=== PATIENT | female | born 1980 | race Two or more races ===

== ENCOUNTER 2019-11-23 11:06 | Emergency (ER) | payer SELFPAY ==
[~2019-11-23] VITALS: Ht 152.4 cm; Wt 77.1 kg
--- NOTE | 2019-11-23 11:30 | NUR ---
ED Nurse Note: Pt walked into ED for cough, sore throat, bodyaches and chills, loss of taste x2 days. Pt is alert and orientedx4, ambulatory. Was tested for COVID yesterday, results pending. Pt denies nausea, vomiting, diarrhea.
--- NOTE | 2019-11-23 11:32 | Emergency Room Report ---
History of Present Illness General Chief Complaint: Upper Respiratory Illness Source: Patient Present Illness HPI Patient is a 39-year-old female denies any significant past medical history who presents to the ER complaining of upper respiratory illness for the past 5 days. Patient complains of fever, chills, cough and chest tightness. She states that she had a COVID-19 PCR done yesterday but is awaiting the results. She denies any abdominal pain nausea or vomiting. She denies any recent travel. She denies any lower extremity pain or edema. She denies any family history of early cardiovascular disease. She denies any smoking. Patient complains of generalized body aches. Patient states that she did not take any medications today. 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 COVID-19 Screening: PUI COVID-19 COVID-19 Testing Source: yesterday Patient History Now: No Reviewed Nursing Documentation: PMH: Agreed; PSxH: Agreed Nursing Documentation-PMH Past Medical History: No Stated History Review of Systems All Other Systems: negative except mentioned in HPI Physical Exam Vital Signs Date Time Temp Pulse Resp B/P (MAP) Pulse Ox O2 Delivery O2 Flow Rate FiO2 11/23/19 11:14 99.0 76 19 127/83 (98) 94 Room Air Sp02 EP Interpretation: reviewed, normal General Appearance: no apparent distress, alert, GCS 15, non-toxic Head: normocephalic, atraumatic Eyes: bilateral eye normal inspection, bilateral eye PERRL ENT: hearing grossly normal, normal pharynx, no angioedema, normal voice Neck: full range of motion, supple/symm/no masses Respiratory: chest non-tender, rhonchi, speaking full sentences Cardiovascular #1: regular rate, rhythm, no edema Cardiovascular #2: 2+ carotid (R), 2+ carotid (L), 2+ radial (R), 2+ radial (L), 2+ dorsalis pedis (R), 2+ dorsalis pedis (L) Gastrointestinal: normal bowel sounds, non tender, soft, non-distended, no guarding, no rebound Rectal: deferred Musculoskeletal: no calf tenderness, no lower extremity edema 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 Patient in no acute respiratory distress. Patient's chest x-ray demonstrates evidence for pneumonia. Likely viral. Will start patient on azithromycin. Patient tested positive for COVID-19. I have given her instructions on how to isolate at home for 2 weeks. After discussing risks and benefits of further diagnostics, treatment plans, as well as indications for and risks of admission, the patient is agreeable to being discharged home. I have explained that their evaluation and treatment in the emergency department today is an important step towards them achieving better health but that their evaluation today is not intended to replace further evaluation and treatment by a physician in their local clinic. I have explained that while the current findings suggest no immediate life threatening emergency they will require further evaluation and treatment by a physician of their choice in their area. They understand that it will be necessary for them to review the final reports of their ED visit with their clinic physician. We have reviewed indications for return to the Emergency Department. I have explained that additional time may need to pass and/or additional testing as an outpatient may be necessary before a definitive diagnosis can be made. They tell me they are willing to follow up as instructed within the timeframe I recommend. They appear to understand what we discussed. Additionally they understand that if they are unable to be seen by an outpatient physician they are welcome, and in fact should, return to the Emergency Department for a repeat evaluation. The patient is stable at time of discharge. Microbiology Date/Time Source Procedure Growth Status 11/23/19 11:52 Nasopharynx SARS-CoV-2 RdRp Gene Assay - Final Complete Chest X-Ray Diagnostic Results Chest X-Ray Diagnostic Results : Chest X-Ray Ordered: Yes # of Views/Limited/Complete: 1 View Indication: Shortness of Breath EP Interpretation: Yes Interpretation: no effusion, no pneumothorax, other - Lateral lower lobe infiltrate Impression: Other - Bilateral lower lobe infiltrate pneumonia Electronically Signed by: Name Last Vital Signs Date Time Temp Pulse Resp B/P (MAP) Pulse Ox O2 Delivery O2 Flow Rate FiO2 11/23/19 11:14 99.0 76 19 127/83 (98) 94 Room Air Disposition: HOME, SELF-CARE Condition: Stable Scripts Azithromycin* (ZITHROMAX*) 250 Mg Tablet 250 MG ORAL DAILY, #6 TAB 0 Refills Take two tables once daily for 1 day, then one tablet once daily for 4 days. Prov: Danuta Lara M.D. 11/23/19 Additional Instructions: The patient was provided with discharge instructions, notified to follow-up with a primary care doctor and or specialist in the next 24-48 hours, and to return to the ED if they have worsening of their symptoms. Please note that this report is being documented using [employer] technology. This can lead to erroneous entry secondary to incorrect interpretation by the dictating instrument. Danuta Lara M.D. Nov 23, 2019 11:31
[2019-11-23 12:04] VITALS: BP 133/81
[2019-11-23] MEDS ORDERED: ZITHROMAX250 MG ORAL (13:06)
--- NOTE | 2019-11-23 13:20 | NUR ---
ER DISCHARGE NOTE: Patient is cleared to be discharged per ERMD, pt is aox4, on room air, with stable vital signs. pt was given dc and prescription instructions, pt was able to verbalize understanding, pt id band remoevd. pt is able to ambulate with steady gait. pt took all belongings. Pt educated on COVID, pt gave verbal understanding.
[2019-11-23 13:25] VITALS: BP 130/79
--- NOTE | 2019-11-23 14:34 | Diagnostic Imaging Report ---
EXAM: XR Chest, 1 View CLINICAL HISTORY: SOB TECHNIQUE: Frontal view of the chest. COMPARISON: None FINDINGS: Hardware: None. Lungs/pleura: Patchy opacities in the mid and lower lungs. No pleural effusion or pneumothorax. Heart/mediastinum: Normal. No cardiomegaly. Soft tissues: Unremarkable. Bones: No acute fracture. Upper abdomen: Normal. IMPRESSION: Patchy opacities in the mid and lower lungs, concerning for an infectious/inflammatory process.
== END 2019-11-23 13:27 | disposition home or self-care (01) ==
LOC: EMR 11:30
DX: U07.1 COVID-19 (principal); J06.9 Acute upper respiratory infection, unspecified
CPT/HCPCS: 71045; 99283; U0002

== ENCOUNTER 2019-12-03 10:41 | Emergency (ER) | payer SELFPAY ==
[~2019-12-03] VITALS: Ht 153 cm; Wt 77.1 kg
[~2019-12-03 10:41] MED LIST: ZITHROMAX250 MG ORAL
[2019-12-03 10:55] VITALS: BP 127/70
[2019-12-03] MEDS ORDERED: Acetaminophen 500mg (ES) tab ORAL ONE (11:30)
[2019-12-03] MEDS ORDERED: Ketorolac 30mg Inj IV ONE (11:30)
[2019-12-03 11:44] LABS: BASOPHILS % (AUTO) 1.2 % (0.0-2.0); EOSINOPHILS % (AUTO) 0.5 % (0.0-3.0); HEMATOCRIT 36.2 % (37.0-47.0); HEMOGLOBIN 12.3 G/DL (12.0-16.0); LYMPHOCYTES % (AUTO) 23.2 % (20.0-45.0); MEAN CORPUSCULAR VOLUME 81 FL (80-99); MONOCYTES % (AUTO) 6.2 % (1.0-10.0); NEUTROPHILS % (AUTO) 68.8 % (45.0-75.0); PLATELET COUNT 476 K/UL (150-450); RED BLOOD COUNT 4.46 M/UL (4.20-5.40); RED CELL DISTRIBUTION WIDTH 11.4 % (11.6-14.8); WHITE BLOOD COUNT 7.3 K/UL (4.8-10.8)
--- NOTE | 2019-12-03 11:52 | Emergency Room Report ---
History of Present Illness General Chief Complaint: Generalized Weakness Source: Patient Present Illness HPI 39-year-old female presents for evaluation. States she was seen here 10 days ago and was diagnosed with COVID. Patient was also discharged on antibiotics. States that since then she has been feeling weak and generalized body aches. Dull, 9 out of 10, nonradiating. Denies cough. Denies shortness of breath. No other aggravating relieving factors. 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 COVID-19 Screening: Positive COVID-19 COVID-19 Testing Source: 10 days ago @ [facility] Patient History Past Medical History: none, HTN Past Surgical History: none Pertinent Family History: none Social History: Denies: smoking, alcohol use, drug use Now: No Immunizations: UTD Reviewed Nursing Documentation: PMH: Agreed; PSxH: Agreed Nursing Documentation-PMH Past Medical History: No History, Except For Hx Hypertension: Yes Review of Systems All Other Systems: negative except mentioned in HPI Physical Exam Vital Signs Date Time Temp Pulse Resp B/P (MAP) Pulse Ox O2 Delivery O2 Flow Rate FiO2 12/03/19 10:55 99.1 95 20 127/70 99 Room Air Sp02 EP Interpretation: reviewed, normal General Appearance: no apparent distress, alert, GCS 15, non-toxic Head: normocephalic, atraumatic Eyes: bilateral eye normal inspection, bilateral eye PERRL ENT: hearing grossly normal, normal pharynx, no angioedema, normal voice Neck: full range of motion, supple/symm/no masses Respiratory: chest non-tender, lungs clear, normal breath sounds, speaking full sentences Cardiovascular #1: regular rate, rhythm, no edema Cardiovascular #2: 2+ carotid (R), 2+ carotid (L), 2+ radial (R), 2+ radial (L), 2+ dorsalis pedis (R), 2+ dorsalis pedis (L) Gastrointestinal: normal bowel sounds, non tender, soft, non-distended, no guarding, no rebound Rectal: deferred Genitourinary: normal inspection, no CVA tenderness Musculoskeletal: back normal, normal range of motion, gait/station normal, non- tender Neurologic: alert, motor strength/tone normal, oriented x3, sensory intact, responsive, speech normal Psychiatric: judgement/insight normal, memory normal, mood/affect normal, no suicidal/homicidal ideation Reflexes: 3+ bicep (R), 3+ bicep (L), 3+ tricep (R), 3+ tricep (L), 3+ knee (R), 3+ knee (L) Lymphatic: no adenopathy Medical Decision Making Diagnostic Impression: Primary Impression: COVID-19 ER Course Hospital Course 39-year-old female presents with continued weakness and body aches. Diagnosed with COVID 10 days ago Differential diagnoses include: URI, bronchitis, asthma/COPD, pneumonia Clinical course Patient placed on stretcher. In isolation. I wore full PPE. After initial history, physical exam reveals a female in no acute distress. Bilateral TM unremarkable. No pharyngeal erythema. No tonsillar exudates. No lymphadenopathy. lungs clear. I ordered labs, IV fluids, Toradol, chest x-ray. Labs reviewed- no leukocytosis, hemoglobin/hematocrit stable, electrolytes okay Chest x-ray shows interval improvement of previously demonstrated infiltrates I discussed findings with patient. Labs unremarkable. Vitals stable. Resting comfortably. Will discharge home. Continue self isolation precautions. Will prescribe antibiotics. Does not have a PMD. I will provide referrals Diagnosis - COVID 19 Stable and discharged home with prescriptions for Amoxicillin. Instructed to followup with PMD. Return to ED if symptoms recur or worsen Laboratory Tests Test 12/03/19 11:18 White Blood Count 7.3 K/UL (4.8-10.8) Red Blood Count 4.46 M/UL (4.20-5.40) Hemoglobin 12.3 G/DL (12.0-16.0) Hematocrit 36.2 % (37.0-47.0) L Mean Corpuscular Volume 81 FL (80-99) Mean Corpuscular Hemoglobin 27.6 PG (27.0-31.0) Mean Corpuscular Hemoglobin Concent 34.0 G/DL (32.0-36.0) Red Cell Distribution Width 11.4 % (11.6-14.8) L Platelet Count 476 K/UL (150-450) H Mean Platelet Volume 5.4 FL (6.5-10.1) L Neutrophils (%) (Auto) 68.8 % (45.0-75.0) Lymphocytes (%) (Auto) 23.2 % (20.0-45.0) Monocytes (%) (Auto) 6.2 % (1.0-10.0) Eosinophils (%) (Auto) 0.5 % (0.0-3.0) Basophils (%) (Auto) 1.2 % (0.0-2.0) Sodium Level 140 MMOL/L (136-145) Potassium Level 4.0 MMOL/L (3.5-5.1) Chloride Level 105 MMOL/L (98-107) Carbon Dioxide Level 25 MMOL/L (21-32) Anion Gap 11 mmol/L (5-15) Blood Urea Nitrogen 9 mg/dL (7-18) Creatinine 0.6 MG/DL (0.55-1.30) Estimat Glomerular Filtration Rate > 60 mL/min (>60) Glucose Level 140 MG/DL (74-106) H Calcium Level 8.6 MG/DL (8.5-10.1) Total Bilirubin 0.3 MG/DL (0.2-1.0) Aspartate Amino Transf (AST/SGOT) 17 U/L (15-37) Alanine Aminotransferase (ALT/SGPT) 27 U/L (12-78) Alkaline Phosphatase 83 U/L (46-116) Total Protein 7.9 G/DL (6.4-8.2) Albumin 3.5 G/DL (3.4-5.0) Globulin 4.4 g/dL Albumin/Globulin Ratio 0.8 (1.0-2.7) L Chest X-Ray Diagnostic Results Chest X-Ray Diagnostic Results : Chest X-Ray Ordered: Yes # of Views/Limited/Complete: 1 View Indication: Other Interpretation: no consolidation, no effusion, no pneumothorax, no acute cardiopulmonary disease Impression: No acute disease Electronically Signed by: Electronically signed by Bruce Cardona MD Last Vital Signs Date Time Temp Pulse Resp B/P (MAP) Pulse Ox O2 Delivery O2 Flow Rate FiO2 12/03/19 10:55 95 20 Room Air 12/03/19 10:55 99.1 128/73 (91) 99 Status: improved Disposition: HOME, SELF-CARE Condition: Stable Scripts Amoxicillin* (AMOXIL*) 500 Mg Capsule 500 MG ORAL THREE TIMES A DAY, #21 CAP Prov: Bruce Cardona MD 12/03/19 Ibuprofen* (MOTRIN*) 600 Mg Tablet 600 MG ORAL Q8H PRN for FOR PAIN, #30 TAB 0 Refills Prov: Bruce Cardona MD 12/03/19 Referrals: NOT CHOSEN [facility]/,REFERRING (PCP) Bruce Cardona MD Dec 03, 2019 11:52
[2019-12-03 12:04] LABS: ANION GAP 11 mmol/L (5-15); BLOOD UREA NITROGEN 9 mg/dL (7-18); CALCIUM 8.6 MG/DL (8.5-10.1); CARBON DIOXIDE 25 MMOL/L (21-32); CHLORIDE 105 MMOL/L (98-107); CREATININE 0.6 MG/DL (0.55-1.30); SODIUM 140 MMOL/L (136-145)
[2019-12-03 12:09] LABS: ALANINE AMINOTRANSFERASE 27 U/L (12-78); ALBUMIN 3.5 G/DL (3.4-5.0); ALBUMIN/GLOBULIN RATIO 0.8 (1.0-2.7); ALKALINE PHOSPHATASE 83 U/L (46-116); ASPARTATE AMINO TRANSFERASE 17 U/L (15-37); BILIRUBIN,TOTAL 0.3 MG/DL (0.2-1.0)
[2019-12-03] MEDS ORDERED: AMOXICILLIN500 MG ORAL (12:50)
[2019-12-03] MEDS ORDERED: IBUPROFEN600 M1 ORAL (12:50)
[2019-12-03 13:05] VITALS: BP 123/78
--- NOTE | 2019-12-03 14:02 | Diagnostic Imaging Report ---
Indication: Cough Technique: One view of the chest Comparison: 11/23/2019 Findings: There inspiration currently. Interim improvement of previously demonstrated bilateral infiltrates, with only minimal residual. The pleural spaces are clear. The heart size is normal. Impression: Interim considerable improvement of previously demonstrated bilateral infiltrates, with minimal residual
[2019-12-04] MEDS ORDERED: ZOFRAN4 MG ORAL (07:40)
[2019-12-04] MEDS ORDERED: ALBUTEROL SULF8.5 G1 INH (07:40)
== END 2019-12-03 13:05 | disposition home or self-care (01) ==
LOC: EMR 11:35
DX: U07.1 COVID-19 (principal); I10 Essential (primary) hypertension
CPT/HCPCS: 36415; 71045; 80053; 85025; 96361; 96374; 99284; J1885; J7030

== ENCOUNTER 2019-12-04 07:08 | Emergency (ER) | payer SELFPAY ==
[~2019-12-04] VITALS: Ht 152.4 cm; Wt 77.1 kg
[~2019-12-04 07:08] MED LIST changes: +AMOXICILLIN500 MG ORAL; +IBUPROFEN600 M1 ORAL
[2019-12-04 07:30] VITALS: BP 122/69
[2019-12-04] MEDS ORDERED: ZOFRAN4 MG ORAL (07:40)
[2019-12-04] MEDS ORDERED: ALBUTEROL SULF8.5 G1 INH (07:40)
[2019-12-04 07:57] VITALS: BP 116/71
--- NOTE | 2019-12-04 08:10 | Emergency Room Report ---
History of Present Illness General Chief Complaint: Generalized Weakness Source: Patient Present Illness HPI Patient was diagnosed with COVID approximately 10 days ago. She had pneumonia at that time. Patient was started on a Z-López. Patient returned yesterday stating that she feels better but continues to be weak. At that time she had laboratory work-up obtained as well as a chest x-ray. Chest ray showed significant improvement from prior visit. Patient states that she still feels a little anxious. She is under a lot of stress because her family is sick from COVID. She was complaining of some numbness in her bilateral upper extremities. She states that he has not been feeling well and occasionally nauseous. Denies any suicidal homicidal ideation. No auditory visual hallucinations. Denies any difficulty with breathing no shortness of breath no persistent fevers. No other complaints are noted. Other than the numbness and stress. Symptoms noted to be mild. No other modifying factors. No other associated signs and symptoms. No other complaints were noted. 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 Past Surgical History: none Pertinent Family History: none Social History: Denies: smoking, alcohol use, drug use Now: No Reviewed Nursing Documentation: PMH: Agreed; PSxH: Agreed Nursing Documentation-PMH Past Medical History: No History, Except For Hx Hypertension: Yes Review of Systems All Other Systems: negative except mentioned in HPI Physical Exam Vital Signs Date Time Temp Pulse Resp B/P (MAP) Pulse Ox O2 Delivery O2 Flow Rate FiO2 12/04/19 07:20 97.5 76 18 119/64 (82) 100 Room Air 12/04/19 07:30 99 Sp02 EP Interpretation: reviewed, normal General Appearance: normal inspection, well appearing, no apparent distress, alert Head: atraumatic Eyes: bilateral eye normal inspection ENT: normal ENT inspection, hearing grossly normal, normal voice Neck: normal inspection, full range of motion, supple, no bony tend Respiratory: normal inspection, lungs clear, normal breath sounds, no respiratory distress, no retraction, no wheezing Cardiovascular #1: regular rate, rhythm, no edema Gastrointestinal: normal inspection, normal bowel sounds, non tender, soft, no guarding, no hernia Genitourinary: no CVA tenderness Musculoskeletal: normal inspection, back normal, normal range of motion Neurologic: alert, responsive, speech normal, normal inspection Psychiatric: judgement/insight normal, memory normal, no suicidal/homicidal ideation, no delusions, depressed affect, anxious Skin: no rash Medical Decision Making Diagnostic Impression: Primary Impression: COVID-19 Additional Impressions: Anxiety Paresthesias Nausea ER Course Patient presents emergency department today with stress and numbness tingling in the hands. Patient was also positive coronavirus. Differential diagnosis inc lude worsening COVID, peripheral neuropathy, vasculitis, stress reaction just name a few. Patient's exam complete benign. Review of medical records show that patient had extensive work-up yesterday including chest x-ray and laboratory work-up. Patient did have a history of positive coronavirus test. I feel the patient symptoms are likely secondary to stress reaction and fatigue likely secondary to viral infection. Symptoms appear to be improving. Patient is O2 saturation was appropriate. Patient did not show any evidence of respiratory distress. Therefore I feel the patient be discharged home. Will provide patient prescription for albuterol inhaler and Zofran as needed for nausea. Recommend stress reduction. Patient is advised to follow up with pr imary doctor in 2-3 days and return the emergency room for any worsening symptoms and as needed. Prior medical records were reviewed from previous visit. Last Vital Signs Date Time Temp Pulse Resp B/P (MAP) Pulse Ox O2 Delivery O2 Flow Rate FiO2 12/04/19 07:57 97.5 82 17 116/71 97 Room Air 12/04/19 07:30 99 Status: improved Disposition: HOME, SELF-CARE Condition: Stable Scripts Albuterol Sulfate* (Albuterol Sulfate Hfa*) 8.5 Gm Hfa.aer.ad 2 PUFF INH Q4H, #1 INH Prov: Tomy Bailon MD 12/04/19 Ondansetron (Zofran) 4 Mg Tablet 4 MG ORAL Q6H PRN for Nausea & Vomiting, #10 TAB 0 Refills Prov: Tomy Bailon MD 12/04/19 Referrals: NOT CHOSEN [facility]/,REFERRING (PCP) Patient Instructions: Tomy Romero MD Dec 04, 2019 08:10
== END 2019-12-04 07:59 | disposition home or self-care (01) ==
LOC: EMR 07:36
DX: U07.1 COVID-19 (principal); F41.9 Anxiety disorder, unspecified; R20.2 Paresthesia of skin; R11.0 Nausea; I10 Essential (primary) hypertension
CPT/HCPCS: 99282

== ENCOUNTER 2019-12-17 13:54 | Emergency (ER) | payer SELFPAY ==
[~2019-12-17] VITALS: Ht 165.1 cm; Wt 77.1 kg
[~2019-12-17 13:54] MED LIST changes: +ALBUTEROL SULF8.5 G1 INH; +ZOFRAN4 MG ORAL
--- NOTE | 2019-12-17 14:01 | NUR ---
ED Nurse Note: Pt ambulated to ed c/o headaches, coughing, sore throat and chest pain. pt was [facility] before and was covid +
--- NOTE | 2019-12-17 14:09 | NUR ---
ED Nurse Note: ERMD at bedside
[2019-12-17 14:13] VITALS: BP 139/70
--- NOTE | 2019-12-17 14:21 | Emergency Room Report ---
History of Present Illness General Chief Complaint: Chest Pain Source: Patient Present Illness HPI Disclaimer: Please note that this report is being documented using [employer] technology. This can lead to erroneous entry secondary to incorrect interpretation by the dictating instrument. HPI: 39-year-old female recent diagnosis of COVID-19 approximately November 22 presented for feelings of epigastric and chest pain coughing sore throat and body aches. She was diagnosed with COVID-19 on December 01 she did return to the ER on the and the first work-up essentially negative on the she had been treated with a Z-López. She states over the past 3 weeks she has been taking a lot of ibuprofen as needed for pain. She denies any vomiting but does report intermittent nausea no fevers. No medical history noted. 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 COVID-19 Screening: Negative COVID-19 COVID-19 Testing Source: POSITIVE TWO WEEKS AGO, NEGATIVE A WEEK AGO Patient History Reviewed Nursing Documentation: PMH: Agreed; PSxH: Agreed Nursing Documentation-PMH Past Medical History: No History, Except For Hx Hypertension: Yes Review of Systems All Other Systems: negative except mentioned in HPI Physical Exam Vital Signs Date Time Temp Pulse Resp B/P (MAP) Pulse Ox O2 Delivery O2 Flow Rate FiO2 12/17/19 14:07 97.9 74 18 139/70 (93) 100 Room Air Sp02 EP Interpretation: reviewed, normal General Appearance: well appearing, no apparent distress Head: normocephalic, atraumatic Eyes: bilateral eye PERRL, bilateral eye EOMI ENT: hearing grossly normal, moist mucus membranes Neck: full range of motion, supple Respiratory: lungs clear, normal breath sounds, no rhonchi, no respiratory distress, no retraction, no wheezing Cardiovascular #1: normal peripheral pulses, regular rate, rhythm, no murmur Gastrointestinal: non tender, soft, non-distended, no guarding Neurologic: alert, oriented x3, no focal defects Skin: normal color, warm/dry Medical Decision Making Diagnostic Impression: Primary Impression: Atypical chest pain Additional Impression: Epigastric pain ER Course MDM: Differential diagnosis included but not limited to gastritis, GERD, anx iety, less likely ACS, recurrent COVID-19 Clinical course-patient's vital signs stable exam benign patient in no acute distress. Basic laboratory studies were sent chest x-ray ordered EKG completed and showed normal sinus rhythm. Patient was not hypoxic. Laboratory studies unremarkable. Troponin negative. Chest x-ray clear. Low suspicion for emergent medical process at this time. I do suspect patient is having some element of mild gastritis or GERD will start on Pepcid. I instructed patient to discontinue taking Motrin and switch to Tylenol as needed for pain or headache. Labs - Laboratory Tests Test 12/17/19 14:10 White Blood Count 9.9 K/UL (4.8-10.8) Red Blood Count 4.34 M/UL (4.20-5.40) Hemoglobin 12.2 G/DL (12.0-16.0) Hematocrit 35.1 % (37.0-47.0) L Mean Corpuscular Volume 81 FL (80-99) Mean Corpuscular Hemoglobin 28.1 PG (27.0-31.0) Mean Corpuscular Hemoglobin Concent 34.8 G/DL (32.0-36.0) Red Cell Distribution Width 12.3 % (11.6-14.8) Platelet Count 297 K/UL (150-450) Mean Platelet Volume 5.7 FL (6.5-10.1) L Neutrophils (%) (Auto) 63.1 % (45.0-75.0) Lymphocytes (%) (Auto) 26.3 % (20.0-45.0) Monocytes (%) (Auto) 7.0 % (1.0-10.0) Eosinophils (%) (Auto) 1.2 % (0.0-3.0) Basophils (%) (Auto) 2.5 % (0.0-2.0) H Sodium Level 138 MMOL/L (136-145) Potassium Level 3.5 MMOL/L (3.5-5.1) Chloride Level 101 MMOL/L (98-107) Carbon Dioxide Level 25 MMOL/L (21-32) Anion Gap 12 mmol/L (5-15) Blood Urea Nitrogen 6 mg/dL (7-18) L Creatinine 0.7 MG/DL (0.55-1.30) Estimated Glomerular Filtration Rate > 60 mL/min (>60) Glucose Level 118 MG/DL (74-106) H Calcium Level 8.9 MG/DL (8.5-10.1) Total Bilirubin 0.2 MG/DL (0.2-1.0) Aspartate Amino Transferase (AST) 13 U/L (15-37) L Alanine Aminotransferase (ALT) 17 U/L (12-78) Alkaline Phosphatase 90 U/L (46-116) Troponin I 0.000 ng/mL (0.000-0.056) Total Protein 7.0 G/DL (6.4-8.2) Albumin 3.6 G/DL (3.4-5.0) Globulin 3.4 g/dL Albumin/Globulin Ratio 1.1 (1.0-2.7) Lipase 133 U/L (73-393) On reevaluation: Patient remained in no acute distress Plan-discharge home follow-up PMD return precautions given EKG Diagnostic Results Troponin ordered: Yes Rate: normal Rhythm: NSR ST Segments: no acute changes Rhythm Strip Diag. Results EP Interpretation: yes Rate: 67 Rhythm: NSR, no PVC's, no ectopy Chest X-Ray Diagnostic Results Chest X-Ray Diagnostic Results : Chest X-Ray Ordered: Yes # of Views/Limited/Complete: 1 View Indication: Chest Pain EP Interpretation: Yes Interpretation: no consolidation, no effusion, no pneumothorax Impression: No acute disease Electronically Signed by: Cj Galdamez MD Last Vital Signs Date Time Temp Pulse Resp B/P (MAP) Pulse Ox O2 Delivery O2 Flow Rate FiO2 12/17/19 14:13 97.9 74 18 139/70 100 Room Air Disposition: HOME, SELF-CARE Condition: Stable Scripts Acetaminophen* (TYLENOL EXTRA STRENGTH*) 500 Mg Tablet 500 MG ORAL Q6H PRN for Mild Pain/Temp > 100.5, #30 TAB 0 Refills Prov: Cj Galdamez M.D. 12/17/19 Famotidine* (Pepcid 20mg tablet*) 20 Mg Tablet 20 MG ORAL TWICE A DAY for Gerd, #60 TAB 0 Refills Prov: Cj Galdamez M.D. 12/17/19 Referrals: NOT CHOSEN [facility]/,REFERRING (PCP) Cj Galdamez M.D. Dec 17, 2019 14:21
[2019-12-17 14:35] LABS: BASOPHILS % (AUTO) 2.5 % (0.0-2.0); EOSINOPHILS % (AUTO) 1.2 % (0.0-3.0); HEMATOCRIT 35.1 % (37.0-47.0); HEMOGLOBIN 12.2 G/DL (12.0-16.0); LYMPHOCYTES % (AUTO) 26.3 % (20.0-45.0); MEAN CORPUSCULAR VOLUME 81 FL (80-99); NEUTROPHILS % (AUTO) 63.1 % (45.0-75.0); PLATELET COUNT 297 K/UL (150-450); RED BLOOD COUNT 4.34 M/UL (4.20-5.40); RED CELL DISTRIBUTION WIDTH 12.3 % (11.6-14.8); WHITE BLOOD COUNT 9.9 K/UL (4.8-10.8)
[2019-12-17 14:46] LABS: ANION GAP 12 mmol/L (5-15); BLOOD UREA NITROGEN 6 mg/dL (7-18); CALCIUM 8.9 MG/DL (8.5-10.1); CARBON DIOXIDE 25 MMOL/L (21-32); CHLORIDE 101 MMOL/L (98-107); CREATININE 0.7 MG/DL (0.55-1.30); POTASSIUM 3.5 MMOL/L (3.5-5.1); SODIUM 138 MMOL/L (136-145)
[2019-12-17 14:50] LABS: ALANINE AMINOTRANSFERASE 17 U/L (12-78); ALBUMIN 3.6 G/DL (3.4-5.0); ALBUMIN/GLOBULIN RATIO 1.1 (1.0-2.7); ALKALINE PHOSPHATASE 90 U/L (46-116); ASPARTATE AMINO TRANSFERASE 13 U/L (15-37); BILIRUBIN,TOTAL 0.2 MG/DL (0.2-1.0)
[2019-12-17] MEDS ORDERED: TYLENOL EXTRA500 MG ORAL (15:06)
[2019-12-17] MEDS ORDERED: FAMOTIDINE20 MG ORAL (15:06)
--- NOTE | 2019-12-17 15:09 | Diagnostic Imaging Report ---
Indication: Chest pain Technique: One view of the chest Comparison: 12/03/2019 Findings: Lungs and pleural spaces are clear. Heart size is normal. No significant change Impression: No acute process
[2019-12-17 15:21] VITALS: BP 132/73
--- NOTE | 2019-12-17 15:21 | NUR ---
ER DISCHARGE NOTE: Patient is cleared to be discharged per ERMD, pt is aox4, on room air, with stable vital signs. pt was given dc and prescription instructions, pt was able to verbalize understanding, pt id band and iv site removed without complications. pt is able to ambulate with steady gait. pt took all belongings.
--- NOTE | 2019-12-20 20:14 | Cardiology Report ---
APPROVED REPORT EKG Measurement Heart [id number] <Conclusion> Normal sinus rhythm Normal ECG
== END 2019-12-17 15:20 | disposition home or self-care (01) ==
LOC: EMR 14:08
DX: R07.89 Other chest pain (principal); R10.13 Epigastric pain; I10 Essential (primary) hypertension; Z86.19 Personal history of other infectious and parasitic diseases
CPT/HCPCS: 36415; 71045; 80053; 83690; 84484; 85025; 93005; 99283

== ENCOUNTER 2020-01-14 10:56 | Emergency (ER) | payer MEDICAID ==
[~2020-01-14] VITALS: Ht 154.9 cm; Wt 73.5 kg
[~2020-01-14 10:56] MED LIST changes: +FAMOTIDINE20 MG ORAL; +TYLENOL EXTRA500 MG ORAL
--- NOTE | 2020-01-14 11:27 | NUR ---
ED Nurse Note: PT AMBULATED TO ED C/O LEFT NON RADIATING PRESSURE LIKE CHEST PAIN X 3 DAYS. PT REPORTS NAUSEA, DENIES HEADACHES, DIZZINESS, AND VOMITING
[2020-01-14 11:28] VITALS: BP 136/87
--- NOTE | 2020-01-14 11:30 | NUR ---
ED Nurse Note: HAND OFF GIVEN TO JUD HENSON
[2020-01-14 11:45] LABS: BASOPHILS % (AUTO) 1.2 % (0.0-2.0); EOSINOPHILS % (AUTO) 0.7 % (0.0-3.0); HEMATOCRIT 43.1 % (37.0-47.0); LYMPHOCYTES % (AUTO) 23.7 % (20.0-45.0); MEAN CORPUSCULAR VOLUME 90 FL (80-99); MONOCYTES % (AUTO) 4.6 % (1.0-10.0); NEUTROPHILS % (AUTO) 69.7 % (45.0-75.0); PLATELET COUNT 337 K/UL (150-450); RED BLOOD COUNT 4.78 M/UL (4.20-5.40); RED CELL DISTRIBUTION WIDTH 13.4 % (11.6-14.8); WHITE BLOOD COUNT 8.3 K/UL (4.8-10.8)
[2020-01-14 11:54] LABS: ANION GAP 6 mmol/L (5-15); BLOOD UREA NITROGEN 10 mg/dL (7-18); CALCIUM 8.5 MG/DL (8.5-10.1); CARBON DIOXIDE 28 MMOL/L (21-32); CHLORIDE 103 MMOL/L (98-107); CREATININE 0.7 MG/DL (0.55-1.30); POTASSIUM 3.4 MMOL/L (3.5-5.1); SODIUM 137 MMOL/L (136-145)
[2020-01-14 12:05] LABS: ALANINE AMINOTRANSFERASE 25 U/L (12-78); ALBUMIN 3.7 G/DL (3.4-5.0); ALBUMIN/GLOBULIN RATIO 0.8 (1.0-2.7); ALKALINE PHOSPHATASE 102 U/L (46-116); ASPARTATE AMINO TRANSFERASE 17 U/L (15-37); BILIRUBIN,TOTAL 0.4 MG/DL (0.2-1.0)
[2020-01-14] MEDS ORDERED: Lidocaine 2% Visc 15ml soln ORAL ONE (12:15)
[2020-01-14] MEDS ORDERED: Dicyclomine HCl 10mg/5ml oral soln ORAL ONE (12:15)
[2020-01-14] MEDS ORDERED: Mylanta II UD 30ml ORAL ONE (12:15)
--- NOTE | 2020-01-14 12:22 | Emergency Room Report ---
History of Present Illness General Chief Complaint: Chest Pain Source: Patient Present Illness HPI Disclaimer: Please note that this report is being documented using DRAGON technology. This can lead to erroneous entry secondary to incorrect interpretation by the dictating instrument. HPI: This a 39-year-old female presenting for evaluation of chest pain. Patient had tested positive for COVID-19 developed a pneumonia November but has since had multiple negative Covid swabs. She completed Z-López for the pneumonia. She reports 3 to 4 days of burning epigastric pain radiating up through the chest and in the back of the throat. Sometimes feels pressure in her chest along with this burning sensation. Denies new cough, shortness of breath, palpitations, lightheadedness, diaphoresis, vomiting, diarrhea, abdominal pain otherwise. Does not take a regular antacid but has been prescribed them in the past. Does not drink excessively, eat spicy foods, excessive caffeine or dark chocolate. She states her stomach has been upset since starting the antibiotics several months ago. No exacerbating or relieving factors. 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 EOMI. uvula midline, tonsils 1+, no edema, no erythema, no exudate, no submandibular lymphadenopathy Cardiovascular: RRR. S1 and S2 normal. No murmur appreciated Resp: Normal work of breathing. No cough, wheezing or crackles appreciated Abdomen: Abdomen is soft, nondistended. Nontender Skin: Intact. No abrasions, laceration or rash over the exposed skin MSK: Normal tone and bulk. Moving all extremities. No obvious deformity. Neuro: Awake and alert. Mentating appropriately. Medical Decision Making Diagnostic Impression: Primary Impression: Chest pain Additional Impression: GERD (gastroesophageal reflux disease) ER Course Well-appearing 39-year-old female presents for evaluation of chest pain and sore throat. Differential includes was not limited to pharyngitis, laryngitis, viral syndrome, bronchitis, pneumonia, PE, ACS, arrhythmia, GERD among others. EKG obtained in triage is nonischemic shows normal sinus rhythm without changes. Chest x-ray shows no infiltrate. Labs including troponin are within normal limits. Patient was treated with GI cocktail and states her symptoms resolved. She is no longer taking the Pepcid prescribed to her previously. I will prescribe this again encouraged her to use Maalox as well as needed for control of these heartburn-like symptoms. Believe she is low risk for major adverse cardiac event according to heart score. She is safe to follow-up on an outpatient basis. Discussed reasons to return to the emergency department. She understands and agrees with this treatment plan. Heart score: History: 1 EC Age: 1 Risk factors: 0 Initial troponin: 0 Total: 1 Laboratory Tests Test 01/14/20 11:25 White Blood Count 8.3 K/UL (4.8-10.8) Red Blood Count 4.78 M/UL (4.20-5.40) Hemoglobin 14.0 G/DL (12.0-16.0) Hematocrit 43.1 % (37.0-47.0) Mean Corpuscular Volume 90 FL (80-99) Mean Corpuscular Hemoglobin 29.3 PG (27.0-31.0) Mean Corpuscular Hemoglobin Concent 32.5 G/DL (32.0-36.0) Red Cell Distribution Width 13.4 % (11.6-14.8) Platelet Count 337 K/UL (150-450) Mean Platelet Volume 6.3 FL (6.5-10.1) L Neutrophils (%) (Auto) 69.7 % (45.0-75.0) Lymphocytes (%) (Auto) 23.7 % (20.0-45.0) Monocytes (%) (Auto) 4.6 % (1.0-10.0) Eosinophils (%) (Auto) 0.7 % (0.0-3.0) Basophils (%) (Auto) 1.2 % (0.0-2.0) D-Dimer 0.21 mg/L FEU (0.00-0.49) Sodium Level 137 MMOL/L (136-145) Potassium Level 3.4 MMOL/L (3.5-5.1) L Chloride Level 103 MMOL/L (98-107) Carbon Dioxide Level 28 MMOL/L (21-32) Anion Gap 6 mmol/L (5-15) Blood Urea Nitrogen 10 mg/dL (7-18) Creatinine 0.7 MG/DL (0.55-1.30) Estimated Glomerular Filtration Rate > 60 mL/min (>60) Glucose Level 113 MG/DL (74-106) H Calcium Level 8.5 MG/DL (8.5-10.1) Total Bilirubin 0.4 MG/DL (0.2-1.0) Aspartate Amino Transferase (AST) 17 U/L (15-37) Alanine Aminotransferase (ALT) 25 U/L (12-78) Alkaline Phosphatase 102 U/L (46-116) Troponin I 0.000 ng/mL (0.000-0.056) Pro-B-Type Natriuretic Peptide 34 pg/mL (0-125) Total Protein 8.1 G/DL (6.4-8.2) Albumin 3.7 G/DL (3.4-5.0) Globulin 4.4 g/dL Albumin/Globulin Ratio 0.8 (1.0-2.7) L EKG Diagnostic Results Troponin ordered: Yes When was troponin ordered?: Jan 14, 2020 EKG Time: 11:24 Rate: normal Rhythm: NSR ST Segments: no acute changes Other Impression Sinus rhythm, normal axis, normal intervals, no ST segment changes Rhythm Strip Diag. Results Rhythm Strip Time: 11:24 EP Interpretation: yes Rate: 67 Rhythm: NSR, no PVC's, no ectopy Chest X-Ray Diagnostic Results Chest X-Ray Diagnostic Results : Chest X-Ray Ordered: Yes # of Views/Limited/Complete: 1 View Indication: Chest Pain EP Interpretation: Yes Interpretation: no consolidation, no effusion, no pneumothorax, no acute cardiopulmonary disease Impression: No acute disease Electronically Signed by: Electronically signed by Dr. Angel Miller MD Last Vital Signs Date Time Temp Pulse Resp B/P (MAP) Pulse Ox O2 Delivery O2 Flow Rate FiO2 01/14/20 11:28 88 20 Room Air 01/14/20 11:28 98.8 136/87 96 Disposition: HOME, SELF-CARE Condition: Improved Scripts Famotidine* (Pepcid 20mg tablet*) 20 Mg Tablet 20 MG ORAL TWICE A DAY for Gerd, #60 TAB 0 Refills Prov: Angel Miller MD 01/14/20 Referrals: NOT CHOSEN IPA/,REFERRING (PCP) Angel Miller MD Jan 14, 2020 12:22
--- NOTE | 2020-01-14 12:27 | Diagnostic Imaging Report ---
Indication: Shortness of breath Technique: XRAY Chest 1v Comparison: None Findings: Heart size and mediastinal contours are within normal limits for AP technique and stable compared to the prior exam. There is no focal airspace consolidation, pneumothorax or pleural effusion. Osseous structures demonstrate no acute abnormality. Impression: No radiographic evidence of acute cardiopulmonary disease.
[2020-01-14] MEDS ORDERED: FAMOTIDINE20 MG ORAL (13:05)
[2020-01-14 13:10] VITALS: BP 141/81
== END 2020-01-14 13:10 | disposition home or self-care (01) ==
LOC: EMR 11:30
DX: R07.9 Chest pain, unspecified (principal); K21.9 Gastro-esophageal reflux disease without esophagitis; I10 Essential (primary) hypertension; Z86.19 Personal history of other infectious and parasitic diseases
CPT/HCPCS: 36415; 71045; 80053; 83880; 84484; 85025; 85379; 93005; Z7502; 99283